=== PATIENT | female | born 1970 | race Caucasian/White ===

== ENCOUNTER 2016-12-18 06:55 | Emergency (ER) | payer OTHER, MEDICARE ==
[2016-12-18 07:36] VITALS: PULSE 86; RESP 20; TEMP 98
[2016-12-18 07:49] VITALS: BP 159/74; O2SAT 98
== END 2016-12-18 07:40 | disposition home or self-care (01) | DRG 552 ==
LOC: ED 06:55
DX: M54.6 Pain in thoracic spine (principal)
CPT/HCPCS: 99282

== ENCOUNTER 2017-04-19 22:33 | Emergency (ER) | payer OTHER, MEDICARE ==
[2017-04-19 22:45] VITALS: TEMP 97.9
[2017-04-19] MEDS ORDERED: ASPIRIN 81 MG CHEWABLE CTB PO STA (23:07)
[2017-04-19] MEDS ORDERED: SODIUM CHLORIDE 0.9% FLUSH 10 ML SOL IV PRN (23:07)
[2017-04-19] MEDS ORDERED: NITROGLYCERIN 0.4 MG TAB SL PRN (23:07)
[2017-04-19] MEDS ORDERED: KETOROLAC TROMETHAMINE 30 MG/ML SOL IV ONE (23:09)
[2017-04-19] MEDS ORDERED: DIAZEPAM 5MG/ML SOL IV ONE (23:09)
[2017-04-19] MEDS ORDERED: ONDANSETRON HCL 4 MG/2 ML SOL IV ONE (23:10)
[2017-04-19] MEDS ORDERED: KETOROLAC TROMETHAMINE 30 MG/ML SOL ONE (23:13)
[2017-04-19] MEDS ORDERED: ONDANSETRON HCL 4 MG/2 ML SOL ONE (23:13)
[2017-04-19] MEDS ORDERED: DIAZEPAM 5MG/ML SOL ONE (23:13)
[2017-04-19] MEDS ORDERED: ASPIRIN 81 MG CHEWABLE CTB ONE (23:13)
[2017-04-19 23:25] LABS: BASOPHILS % (AUTO) 1 % (0-3); EOSINOPHILS % (AUTO) 2 % (0-9); HEMATOCRIT 34 % (35-47); MONOCYTES % (AUTO) 6.2 % (0-12); NEUTROPHILS % (AUTO) 66.6 % (37-80)
[2017-04-19 23:33] LABS: MEAN CORPUSCULAR VOLUME 65 fL (81-99)
[2017-04-19 23:43] LABS: ANISOCYTOSIS MOD AMT; HYPOCHROMASIA SLIGHT AMT; OVALOCYTES PRESENT
[2017-04-19 23:49] LABS: CALCIUM 8.9 mg/dl (8.5-10.1); GLOM FILT RATE 76 mL/min (>60); POTASSIUM 4.1 mMol/L (3.5-5.1); SODIUM 140 mMol/L (136-145)
[2017-04-20 01:25] VITALS: BP 165/85; PULSE 81; RESP 16; O2SAT 94
== END 2017-04-20 00:48 | disposition home or self-care (01) | DRG 552 ==
LOC: ED 22:33
DX: M62.830 Muscle spasm of back (principal); R07.9 Chest pain, unspecified
CPT/HCPCS: 36415; 71010; 80048; 82550; 84484; 85025; 85610; 85730; 93005; 99285; J1885; J2405; J3360

== ENCOUNTER 2017-08-14 12:41 | Emergency (ER) | payer OTHER, MEDICARE ==
[2017-08-14 12:57] VITALS: BP 144/93; PULSE 88; RESP 16; TEMP 96.8; O2SAT 96
[2017-08-14 13:17] LABS: HEMATOCRIT 36 % (35-47); MEAN CORPUSCULAR HGB CONC 29.8 gm/dl (32.0-36.0)
[2017-08-14 13:46] LABS: BASOPHILS % (MANUAL) 0 % (0-3); EOSINOPHILS % (MANUAL) 2 % (0-9); LYMPHOCYTES % (MANUAL) 7 % (10-50); MEAN CORPUSCULAR VOLUME 65 fL (81-99)
[2017-08-14 13:47] LABS: ANISOCYTOSIS MOD AMT
== END 2017-08-14 14:42 | disposition home or self-care (01) | DRG 603 ==
LOC: ED 12:41
DX: L03.116 Cellulitis of left lower limb (principal)
CPT/HCPCS: 36415; 85007; 85027; 99282

== ENCOUNTER 2018-10-29 03:32 | Emergency (ER) | payer OTHER, MEDICARE ==
[2018-10-29 03:37] VITALS: RESP 18; TEMP 97.9
[2018-10-29] MEDS ORDERED: CYCLOBENZAPRINE 10 MG TAB PO ONE (04:04)
[2018-10-29] MEDS ORDERED: CYCLOBENZAPRINE 10 MG TAB ONE (04:08)
[2018-10-29] MEDS ORDERED: IBUPROFEN 600 MG TAB PO ONE (04:11)
[2018-10-29] MEDS ORDERED: IBUPROFEN 600 MG TAB ONE (04:15)
[2018-10-29 04:48] VITALS: BP 165/116; PULSE 78; O2SAT 95
== END 2018-10-29 04:20 | disposition home or self-care (01) | DRG 552 ==
LOC: ED 03:32
DX: M62.830 Muscle spasm of back (principal)
CPT/HCPCS: 99282; 99283; A9270-GY

== ENCOUNTER 2018-11-05 21:17 | Emergency (ER) | payer OTHER, MEDICARE ==
[2018-11-05] MEDS ORDERED: KETOROLAC TROMETHAMINE 30 MG/ML SOL IM ONE (21:41)
[2018-11-05] MEDS ORDERED: KETOROLAC TROMETHAMINE 30 MG/ML SOL ONE (21:43)
[2018-11-05 22:19] VITALS: TEMP 97.9
[2018-11-05 22:20] VITALS: PULSE 82; RESP 20; O2SAT 98
[2018-11-05 22:49] VITALS: BP 160/102
== END 2018-11-05 22:43 | disposition home or self-care (01) | DRG 552 ==
LOC: ED 21:17
DX: M62.830 Muscle spasm of back (principal)
CPT/HCPCS: 93005; 96372; 99283; J1885